=== PATIENT | male | born 1975 | race Caucasian/White ===

== ENCOUNTER 2017-09-19 20:13 | Emergency (ER) | payer OTHER ==
[~2017-09-19] VITALS: Ht 182.9 cm; Wt 94.3 kg
[2017-09-19 20:50] VITALS: BP 157/91
[2017-09-19] MEDS ORDERED: IBUPROFEN800 MG ORAL (21:00)
[2017-09-19] MEDS ORDERED: AUGMENTIN 875-1 EAC1 ORAL (21:00)
[2017-09-19 21:03] VITALS: BP 157/91
--- NOTE | 2017-09-22 06:47 | Emergency Room Report ---
History of Present Illness General Chief Complaint: Earache Source: Patient Present Illness HPI 42-year-old male presents ED for evaluation. Patient presents with sudden onset of left ear pain. Started 3 hours ago. Throbbing, 10 out of 10, nonradiating. Denies fevers or chills. Denies cough. Denies sore throat. Denies trauma to the ear. Denies any tinnitus or change in hearing. No other aggravating or relieving factors. Denies any other associated symptoms Allergies: Coded Allergies: No Known Allergies (Unverified , 09/19/17) Patient History Past Medical History: none Past Surgical History: none Pertinent Family History: none Social History: Denies: smoking, alcohol use, drug use Immunizations: UTD Reviewed Nursing Documentation: PMH: Agreed; PSxH: Agreed Nursing Documentation-PMH Past Medical History: No Stated History Review of Systems All Other Systems: negative except mentioned in HPI Physical Exam Vital Signs Date Time Temp Pulse Resp B/P (MAP) Pulse Ox O2 Delivery O2 Flow Rate FiO2 09/19/17 20:45 98.4 98 22 157/91 98 Room Air 98.4 Sp02 EP Interpretation: reviewed, normal General Appearance: no apparent distress, alert, GCS 15, non-toxic Head: normocephalic Eyes: bilateral eye normal inspection, bilateral eye PERRL ENT: hearing grossly normal, normal pharynx, no angioedema, normal voice, other - L TM poor light reflex, erythematous Neck: full range of motion, supple/symm/no masses Respiratory: normal inspection Cardiovascular #1: normal inspection Gastrointestinal: normal inspection Rectal: deferred Genitourinary: no CVA tenderness Musculoskeletal: normal inspection Neurologic: alert, oriented x3, responsive, motor strength/tone normal, sensory intact, speech normal Psychiatric: normal inspection Skin: normal inspection Lymphatic: normal inspection Medical Decision Making Diagnostic Impression: Primary Impression: Otitis media Qualified Codes: H66.90 - Otitis media, unspecified, unspecified ear ER Course Hospital Course 42-year-old M presents to ED with pain L ear. no fever. Differential diagnoses include: TM perforation, otitis externa, otitis media Clinical course Patient placed on stretcher. After initial history, physical exam reveals a female in no acute distress. L TM erythematous, poor light reflex Remainder of physical exam unremarkable. clinical findings consistent with otitis media given pain meds in ED Diagnosis - otitis media Stable and discharged to home with Rx augmentin, motrin. Followup with PMD. Return to ED if symptoms recur or worsen Last Vital Signs Date Time Temp Pulse Resp B/P (MAP) Pulse Ox O2 Delivery O2 Flow Rate FiO2 09/19/17 21:03 98.4 22 157/91 98 Room Air 209.1 09/19/17 20:45 98 Status: improved Disposition: HOME, SELF-CARE Condition: Stable Scripts Amoxicillin/Potassium Clav 875-125* (AUGMENTIN 875-125 TABLET*) 1 Each Tablet 1 TAB ORAL TWICE A DAY for 10 Days, #20 TAB Prov: KACEY HARVEY M.D. 09/19/17 Ibuprofen* (MOTRIN*) 800 Mg Tablet 800 MG ORAL Q8H, #30 TAB 0 Refills Prov: KACEY HARVEY M.D. 09/19/17 Referrals: [facility],REFERRING (PCP) Patient Instructions: Otitis Media, Adult, [id number] KACEY HARVEY M.D. Sep 22, 2017 06:47
== END 2017-09-19 21:03 | disposition home or self-care (01) ==
LOC: EMR 20:35
DX: H66.92 Otitis media, unspecified, left ear (principal)
CPT/HCPCS: 99282

== ENCOUNTER 2018-08-10 10:44 | Inpatient (IN) | payer OTHER ==
[~2018-08-10] VITALS: Ht 182.9 cm; Wt 91.6 kg
[~2018-08-10 10:44] MED LIST: AUGMENTIN 875-1 EAC1 ORAL; IBUPROFEN800 MG ORAL
[2018-08-10 11:58] VITALS: BP 152/92
--- NOTE | 2018-08-10 11:59 | NUR ---
ED Nurse Note: Pt. AAOx4. ambulaotry. came in to ER due to right groin hernia started having swelling and pain this am at 7. pt with painful ambulation and not able to stand up straight . no n/v. pt states he resides in a treatment residential facility.
[2018-08-10] MEDS ORDERED: Ketorolac 30mg Inj IV ONE (12:15)
[2018-08-10] MEDS ORDERED: Isovue-300 100ml vial INJ PRN (12:15)
--- NOTE | 2018-08-10 13:27 | Emergency Room Report ---
History of Present Illness General Chief Complaint: General Complaint Source: Patient Present Illness HPI Patient is a 43-year-old male presented after increased right inguinal pain. Patient reports having prior history of long-standing hernia which had become increasingly painful. Patient had not been having any vomiting. Patient apparently is in a facility for substance abuse. Patient denies any fever.He [place] [facility] Allergies: Coded Allergies: No Known Allergies (Unverified , 09/19/17) Patient History Past Medical History: see triage record Reviewed Nursing Documentation: PMH: Agreed; PSxH: Agreed Nursing Documentation-PMH Past Medical History: No History, Except For Review of Systems All Other Systems: negative except mentioned in HPI Physical Exam Vital Signs Date Time Temp Pulse Resp B/P (MAP) Pulse Ox O2 Delivery O2 Flow Rate FiO2 08/10/18 11:05 92 20 Room Air 08/10/18 11:05 98.2 152/92 98 Sp02 EP Interpretation: reviewed, normal General Appearance: normal inspection, well appearing, no apparent distress, alert, GCS 15, non-toxic, obese Head: atraumatic ENT: normal ENT inspection, hearing grossly normal, normal voice Neck: normal inspection, full range of motion, supple, no bony tend Respiratory: normal inspection, lungs clear, normal breath sounds, no respiratory distress, no retraction, no wheezing Cardiovascular #1: regular rate, rhythm, no edema Gastrointestinal: normal inspection, normal bowel sounds, soft, no guarding, hernia - right inguinal with large defect, other - tenderness to lower abdomen Genitourinary: no CVA tenderness Musculoskeletal: normal inspection, back normal, normal range of motion Neurologic: normal inspection, alert, oriented x3, responsive, speech normal Psychiatric: normal inspection, judgement/insight normal, mood/affect normal Skin: normal inspection, normal color, no rash Medical Decision Making Diagnostic Impression: Primary Impression: Inguinal hernia Qualified Codes: K40.30 - Unilateral inguinal hernia, with obstruction, without gangrene, not specified as recurrent Additional Impressions: Sigmoid diverticulitis Leukocytosis ER Course Patient presented for abdominal pain. Differential diagnoses included incarcerated hernia, ischemic bowel, appendicitis, perforated viscus, abdominal aortic aneurysm, inferior myocardial infarction, viral gastroenteritis among others. Because of complexity of patient's case laboratory testing and imaging studies were ordered.Patient's hernia was noted to be reducible. There is no evidence of obstruction. Patient was noted to have abnormal CT imaging with some sigmoid diverticultis with possible microperforation. Hernia was noted to have some abnormality but was reducible. Dr. Pires was contacted for surgical consult. Dr. Michael Rosales was contacted for inpatient management. Labs Test 08/10/18 12:20 White Blood Count 15.6 K/UL (4.8-10.8) Red Blood Count 5.10 M/UL (4.70-6.10) Hemoglobin 14.2 G/DL (14.2-18.0) Hematocrit 41.9 % (42.0-52.0) Mean Corpuscular Volume 82 FL (80-99) Mean Corpuscular Hemoglobin 27.8 PG (27.0-31.0) Mean Corpuscular Hemoglobin Concent 33.9 G/DL (32.0-36.0) Red Cell Distribution Width 13.0 % (11.6-14.8) Platelet Count 253 K/UL (150-450) Mean Platelet Volume 9.1 FL (6.5-10.1) Neutrophils (%) (Auto) 74.7 % (45.0-75.0) Lymphocytes (%) (Auto) 15.7 % (20.0-45.0) Monocytes (%) (Auto) 7.4 % (1.0-10.0) Eosinophils (%) (Auto) 1.6 % (0.0-3.0) Basophils (%) (Auto) 0.6 % (0.0-2.0) Urine Color Pale yellow Urine Appearance Clear Urine pH 7 (4.5-8.0) Urine Specific [place] 1.010 (1.005-1.035) Urine Protein Negative (NEGATIVE) Urine Glucose (UA) Negative (NEGATIVE) Urine Ketones Negative (NEGATIVE) Urine Blood Negative (NEGATIVE) Urine Nitrite Negative (NEGATIVE) Urine Bilirubin Negative (NEGATIVE) Urine Urobilinogen Normal MG/DL (0.0-1.0) Urine Leukocyte Esterase Negative (NEGATIVE) Sodium Level 138 MMOL/L (136-145) Potassium Level 3.9 MMOL/L (3.5-5.1) Chloride Level 102 MMOL/L (98-107) Carbon Dioxide Level 27 MMOL/L (21-32) Anion Gap 9 mmol/L (5-15) Blood Urea Nitrogen 13 mg/dL (7-18) Creatinine 1.0 MG/DL (0.55-1.30) Estimat Glomerular Filtration Rate > 60 mL/min (>60) Glucose Level 97 MG/DL (74-106) Calcium Level 8.5 MG/DL (8.5-10.1) Total Bilirubin 0.3 MG/DL (0.2-1.0) Aspartate Amino Transf (AST/SGOT) 16 U/L (15-37) Alanine Aminotransferase (ALT/SGPT) 24 U/L (12-78) Alkaline Phosphatase 120 U/L (46-116) Total Protein 7.5 G/DL (6.4-8.2) Albumin 3.7 G/DL (3.4-5.0) Globulin 3.8 g/dL Albumin/Globulin Ratio 1.0 (1.0-2.7) Lipase 138 U/L (73-393) CT/MRI/US Diagnostic Results CT/MRI/US Diagnostic Results : Imaging Test Ordered: CT abdomen and pelvis Impression Impression: Findings consistent with acute sigmoid diverticulitis. There is questionable evidence of focal microperforation, as a single gas bubble is seen which may be extraluminal, versus intraluminal within a diverticulum Large fat-containing indirect right inguinal hernia. Thickening of the contained peritoneum, infiltration of the herniated fat, and a small amount of fluid within the hernia sac raises concern for strangulation Last Vital Signs Date Time Temp Pulse Resp B/P (MAP) Pulse Ox O2 Delivery O2 Flow Rate FiO2 08/10/18 11:58 98.2 92 20 152/92 98 Room Air Status: improved Disposition: ADMITTED INPATIENT Condition: Serious Referrals: [facility],REFERR[facility] (PCP) Dinesh Guardado MD Aug 10, 2018 13:27
[2018-08-10 13:36] LABS: BASOPHILS % (AUTO) 0.6 % (0.0-2.0); EOSINOPHILS % (AUTO) 1.6 % (0.0-3.0); HEMATOCRIT 41.9 % (42.0-52.0); HEMOGLOBIN 14.2 G/DL (14.2-18.0); LYMPHOCYTES % (AUTO) 15.7 % (20.0-45.0); MEAN CORPUSCULAR VOLUME 82 FL (80-99); MONOCYTES % (AUTO) 7.4 % (1.0-10.0); NEUTROPHILS % (AUTO) 74.7 % (45.0-75.0); PLATELET COUNT 253 K/UL (150-450); WHITE BLOOD COUNT 15.6 K/UL (4.8-10.8)
[2018-08-10 13:39] LABS: APPEARANCE,URINE CLEAR; BILIRUBIN, URINE NEGATIVE (NEGATIVE); COLOR,URINE PALE YELLOW; GLUCOSE, URINE (UA) NEGATIVE (NEGATIVE); KETONES,URINE NEGATIVE (NEGATIVE); LEUKOCYTE ESTERASE ,URINE NEGATIVE (NEGATIVE); NITRITE,URINE NEGATIVE (NEGATIVE); PH,URINE 7 (4.5-8.0); PROTEIN,URINE NEGATIVE (NEGATIVE); UROBILINOGEN,URINE NORMAL MG/DL (0.0-1.0)
[2018-08-10 13:44] LABS: ANION GAP 9 mmol/L (5-15); BLOOD UREA NITROGEN 13 mg/dL (7-18); CALCIUM 8.5 MG/DL (8.5-10.1); CARBON DIOXIDE 27 MMOL/L (21-32); CHLORIDE 102 MMOL/L (98-107); POTASSIUM 3.9 MMOL/L (3.5-5.1); SODIUM 138 MMOL/L (136-145)
[2018-08-10 13:47] LABS: ALANINE AMINOTRANSFERASE 24 U/L (12-78); ALBUMIN 3.7 G/DL (3.4-5.0); ALKALINE PHOSPHATASE 120 U/L (46-116); ASPARTATE AMINO TRANSFERASE 16 U/L (15-37); BILIRUBIN,TOTAL 0.3 MG/DL (0.2-1.0)
[2018-08-10 14:35] VITALS: BP 148/90
--- NOTE | 2018-08-10 15:01 | Diagnostic Imaging Report ---
Clinical Indication: Right inguinal region pain, history of inguinal hernia Technique: No oral contrast utilized, per emergency room physician request IV administration nonionic contrast. Venous phase spiral acquisition obtained through the abdomen and pelvis. Multiplanar reconstructions were generated. Total dose length product 1113.48 mGycm. CTDIvol(s) 17.25 mGy. Dose reduction achieved using automated exposure control Comparison: none Findings: Lack of enteric contrast limits assessment of the GI tract. There is sigmoid diverticulosis. There is infiltration of the perisigmoid fat as well as wall thickening of the mid sigmoid. A gas bubble is seen within the area of fatty infiltration. Uncertain as to whether this is extraluminal or contained within a diverticulum. Some free fluid is seen in the pelvis. No discrete loculated fluid collections are evident. There is a large right indirect inguinal hernia. This contains only mesenteric fat. However, there is infiltration of the fat within the hernia, thickening of the peritoneum within the hernia sac, and a small amount of free fluid in the inferior aspect of the hernia sac. The appendix is normal. No small bowel distention. The distal esophagus, stomach, duodenum are unremarkable. There is a tiny fat-containing umbilical hernia. The liver is equivocally mildly hypoattenuating. No focal abnormality. The gallbladder, bile ducts, pancreas, spleen, adrenals, right kidney are unremarkable. The left kidney demonstrates one or more subcentimeter low-attenuation lesions which are too small to characterize. No mesenteric or retroperitoneal mass or adenopathy. No pelvic mass or adenopathy. The included lung bases are clear. The bones are unremarkable. Impression: Findings consistent with acute sigmoid diverticulitis. There is questionable evidence of focal microperforation, as a single gas bubble is seen which may be extraluminal, versus intraluminal within a diverticulum Large fat-containing indirect right inguinal hernia. Thickening of the contained peritoneum, infiltration of the herniated fat, and a small amount of fluid within the hernia sac raises concern for strangulation Equivocally slightly hypoattenuating liver, could indicate early fatty change Subcentimeter low-attenuation left renal lesions, too small to characterize, most likely benign simple cysts Incidental finding tiny fat-containing abdominal hernia The CT scanner at [facility] is accredited by the [employer] and the scans are performed using protocols designed to limit radiation exposure to as low as reasonably achievable to attain images of sufficient resolution adequate for diagnostic evaluation.
[2018-08-10] MEDS ORDERED: Piperacillin/Tazobactam 3.375 GM in NS 110 ML IVPB ONE (15:15)
[2018-08-10 17:40] VITALS: BP 150/89
--- NOTE | 2018-08-10 18:17 | NUR ---
ED Nurse Note: INFORMED PT THAT HE IS NPO PER DR. HARVEY. PT STATED HES HASN'T EATEN ANYTHING SICNE THIS MORNING. PT UNDERSTOOD AND VERBALIZED THE INSTRUCTIONS GIVEN
--- NOTE | 2018-08-10 19:54 | NUR ---
ED Nurse Note: Received report. Pt in bed awake with julio césar at [facility]. Awaiting possible admission. MD Pires at [facility] to see pt. Will continue to monitor.
[2018-08-10 20:05] VITALS: BP 144/87
--- NOTE | 2018-08-10 21:03 | Consultation ---
History of Present Illness General Reason for Hospitalization: General Complaint Present Illness HPI 43 year old male with known right inguinal hernia presented with acute onset of right groin and abdominal pain. no n/v/f/c/. +flatus. pain cramping without radiation. In ED noted to have leukocytosis. CT with incarcerated right inguinal hernia and possible diverticulitis. surgery called to evaluate. patient seen, chart reviewed, patient examined. Allergies: Coded Allergies: No Known Allergies (Unverified , 09/19/17) Medication History Scheduled Ibuprofen* (Motrin*), 800 MG ORAL Q8H Discontinued Medications Amoxicillin/Potassium Clav 875-125* (Augmentin 875-125 Tablet*), 1 TAB ORAL TWICE A DAY Discontinued Reason: Therapy completed Patient History History Provided By: Patient, Family Member, Significant Other, Medical Record , PMD Healthcare decision maker Resuscitation status Advanced Directive on File Past Medical/Surgical History Past Medical/Surgical History: (1) Otitis media (2) Inguinal hernia Review of Systems Review of Symptoms General ROS: no weight loss or fever Psychological ROS: no depression or mood changes, no memory loss Ophthalmic ROS: no visual changes or eye irritation ENT ROS: no nasal congestion, hearing loss, dizziness Allergy and Immunology ROS: no allergic symptoms or urticaria Hematological and Lymphatic ROS: no swollen glands, unusual bleeding or bruising Endocrine ROS: no polyuria, polydipsia, weight changes, temperature intolerance Respiratory ROS: no cough, shortness of breath, or wheezing Cardiovascular ROS: no chest pain or dyspnea on exertion Gastrointestinal ROS: denies abdominal pain, bright red blood in stool. Musculoskeletal ROS: no myalgias or arthralgias Neurological ROS: no TIA or stroke symptoms Dermatological ROS: no new or changing skin lesions, rashes or pruritis Physical Exam Physical Exam General appearance: alert, cooperative, no distress, appears stated age Head: Normocephalic, without obvious abnormality, atraumatic Eyes: conjunctivae/corneas clear. PERRL, EOM's intact. Fundi benign Throat: Lips, mucosa, and tongue normal. Teeth and gums normal Neck: supple, symmetrical, trachea midline, no adenopathy, thyroid: not enlarged, symmetric, no tenderness/mass/nodules, no carotid bruit and no JVD Lungs: clear to auscultation bilaterally Heart: regular rate and rhythm, S1, S2 normal, no murmur, click, rub or gallop Abdomen: soft, non-tender. Bowel sounds normal. No masses, no organomegaly, mild discomfort on exam. RIH with bowel contents. Extremities: extremities normal, atraumatic, no cyanosis or edema Pulses: 2+ and symmetric Skin: Skin color, texture, turgor normal. No rashes or lesions Neurologic: Grossly normal Last 24 Hour Vital Signs Date Time Temp Pulse Resp B/P (MAP) Pulse Ox O2 Delivery O2 Flow Rate FiO2 08/10/18 13:06 98.2 08/10/18 11:58 98.2 92 20 152/92 98 Room Air 08/10/18 11:05 98.2 92 20 152/92 98 Room Air 08/10/18 11:05 92 20 Room Air Laboratory Tests Test 08/10/18 12:20 White Blood Count 15.6 K/UL (4.8-10.8) H Red Blood Count 5.10 M/UL (4.70-6.10) Hemoglobin 14.2 G/DL (14.2-18.0) Hematocrit 41.9 % (42.0-52.0) L Mean Corpuscular Volume 82 FL (80-99) Mean Corpuscular Hemoglobin 27.8 PG (27.0-31.0) Mean Corpuscular Hemoglobin Concent 33.9 G/DL (32.0-36.0) Red Cell Distribution Width 13.0 % (11.6-14.8) Platelet Count 253 K/UL (150-450) Mean Platelet Volume 9.1 FL (6.5-10.1) Neutrophils (%) (Auto) 74.7 % (45.0-75.0) Lymphocytes (%) (Auto) 15.7 % (20.0-45.0) L Monocytes (%) (Auto) 7.4 % (1.0-10.0) Eosinophils (%) (Auto) 1.6 % (0.0-3.0) Basophils (%) (Auto) 0.6 % (0.0-2.0) Urine Color Pale yellow Urine Appearance Clear Urine pH 7 (4.5-8.0) Urine Specific [place] 1.010 (1.005-1.035) Urine Protein Negative (NEGATIVE) Urine Glucose (UA) Negative (NEGATIVE) Urine Ketones Negative (NEGATIVE) Urine Blood Negative (NEGATIVE) Urine Nitrite Negative (NEGATIVE) Urine Bilirubin Negative (NEGATIVE) Urine Urobilinogen Normal MG/DL (0.0-1.0) Urine Leukocyte Esterase Negative (NEGATIVE) Sodium Level 138 MMOL/L (136-145) Potassium Level 3.9 MMOL/L (3.5-5.1) Chloride Level 102 MMOL/L (98-107) Carbon Dioxide Level 27 MMOL/L (21-32) Anion Gap 9 mmol/L (5-15) Blood Urea Nitrogen 13 mg/dL (7-18) Creatinine 1.0 MG/DL (0.55-1.30) Estimat Glomerular Filtration Rate > 60 mL/min (>60) Glucose Level 97 MG/DL (74-106) Calcium Level 8.5 MG/DL (8.5-10.1) Total Bilirubin 0.3 MG/DL (0.2-1.0) Aspartate Amino Transf (AST/SGOT) 16 U/L (15-37) Alanine Aminotransferase (ALT/SGPT) 24 U/L (12-78) Alkaline Phosphatase 120 U/L (46-116) H Total Protein 7.5 G/DL (6.4-8.2) Albumin 3.7 G/DL (3.4-5.0) Globulin 3.8 g/dL Albumin/Globulin Ratio 1.0 (1.0-2.7) Lipase 138 U/L (73-393) Height (Feet): 6 Weight (Pounds): 208 Medications Current Medications Medications (Trade) Dose Ordered Sig/Lefty Route PRN Reason Start Time Stop Time Status Last Admin Dose Admin Iopamidol (Isovue-300 100ml) 100 ml NOW PRN INJ Radiology Procedure 08/10/18 12:15 Assessment/Plan Problem List: (1) Inguinal hernia Assessment & Plan: incarcerated right inguinal hernia. was able to reduce hernia in ED without complication given duration / leukocytosis will need admission for serial exams. if worsening will need exploration as possible compromised bowel? also seems to have diverticulitis based on CT scan and exam which complicates exam. Admit to medicine npo iv fluids iv abx am labs will follow with serial exams thank you ICD Codes: K40.90 - Unilateral inguinal hernia, without obstruction or gangrene , not specified as recurrent SNOMED: [id number] Qualifiers: Qualified Codes: K40.30 - Unilateral inguinal hernia, with obstruction, without gangrene, not specified as recurrent Ryan Pires Aug 10, 2018 21:03
--- NOTE | 2018-08-10 22:06 | NUR ---
ED Nurse Note: Tried to swab for VRE/CRE and MRSA nares but pt refused. Pt states he does not share anything with anyone at SNF called [facility] and does not want to get swabbed. Will endorse to floor RN during transfer.
[2018-08-10 22:09] VITALS: BP 142/84
--- NOTE | 2018-08-10 22:15 | NUR ---
TRANSFER TO FLOOR: Patient transferred to as ordered, per MD Rosales. Report given to Ramonita FUENTES. Belongings and medications given to Ramonita FUENTES. Pt stable.
[2018-08-10 22:20] VITALS: BP 130/74
--- NOTE | 2018-08-10 22:39 | NUR ---
NURSE NOTES: NURSE NOTES:Patient received from Shin Lobato Patient 43 -yrs- old from ED due to right groin hernia .patient states having swelling and pain from 7 am .patient states painful in ambulation . pain medications was given ER . pain was controlled and with good relief . patient vss, afebrile . patient denies any pain at this time . no s/ s of distress . patient RAC g#20 H/L patent and intact .patient skin intact . patient personal belongings checked and signed . patient family notified patient location and [facility] substance abuse facility . MD notified patient location 303 bed 2 . patient keep NPO as MD orders . call light within reach . bed in low position at all times will cotinue to monitor .
--- NOTE | 2018-08-10 23:15 | History and Physical Report ---
DATE OF ADMISSION: 08/10/2018 REASON FOR ADMISSION: Incarcerated right inguinal hernia. HISTORY OF PRESENT ILLNESS: This 43-year-old male has a known history of a right inguinal hernia and presented to the emergency room with right-sided groin pain that was relatively acute in onset. He noted some abdominal discomfort. He was able to pass gas. He was seen by the surgeon in the emergency room following CAT scan imaging that revealed incarceration and sigmoid diverticulitis. Reduction manually was successfully performed. PAST MEDICAL HISTORY: None. MEDICATIONS: None. ALLERGIES: None. SOCIAL HISTORY: Negative for substance abuse or alcohol abuse. He is an active smoker of 1/2 to 1 ppd. REVIEW OF SYSTEMS: He is being treated for an ear infection with amoxicillin, otherwise negative. PHYSICAL EXAMINATION: VITAL SIGNS: Blood pressure 152/92, pulse 92, respiratory rate 20, afebrile. HEENT: Conjunctivae pink. Sclerae are anicteric. Oropharynx clear. NECK: No adenopathy. LUNGS: Clear. CARDIAC: Regular rhythm and rate. Normal S1, S2. No murmur. ABDOMEN: Tender. Slightly distended. Hernia site is without any protuberance at this time, but still with slight tenderness. EXTREMITIES: Without edema. LABORATORY DATA: Chemistry panel within normal limits. White count 15.6, hemoglobin 14.2. Urinalysis, no active sediment. CAT scan of the abdomen and pelvis is notable for probable renal cyst, fat-containing right inguinal hernia, sigmoid diverticulitis with possible focal microperforation. IMPRESSION: 1. Incarcerated right inguinal hernia, now reduced. 2. Sigmoid diverticulitis with possible microperforation. 3. Leukocytosis. PLAN: 1. NPO. 2. Surgical followup. 3. IV antimicrobials. 4. May need to repeat imaging of the bowel. Michael Rosales M.D. DR: Sincere JOB#: [id number] CC: ANITA
[2018-08-11] MEDS: Piperacillin/Tazobactam 3.375 GM in D5W 110 ML IVPB SCH ×4 (00:01→21:33)
[2018-08-11 04:00] VITALS: BP 142/77
[2018-08-11] MEDS: Morphine Sulfate 2mg/ml Inj IVP PRN ×2 (06:42→18:23)
[2018-08-11 07:09] LABS: BASOPHILS % (AUTO) 0.4 % (0.0-2.0); EOSINOPHILS % (AUTO) 1.1 % (0.0-3.0); HEMATOCRIT 41.2 % (42.0-52.0); HEMOGLOBIN 13.9 G/DL (14.2-18.0); LYMPHOCYTES % (AUTO) 17.3 % (20.0-45.0); MEAN CORPUSCULAR VOLUME 82 FL (80-99); MONOCYTES % (AUTO) 10.9 % (1.0-10.0); NEUTROPHILS % (AUTO) 70.3 % (45.0-75.0); PLATELET COUNT 240 K/UL (150-450); RED BLOOD COUNT 5.03 M/UL (4.70-6.10); WHITE BLOOD COUNT 13.9 K/UL (4.8-10.8)
--- NOTE | 2018-08-11 07:30 | NUR ---
HAND-OFF: Report given to Mariann LobatoPatient in stable conditions
[2018-08-11 07:33] LABS: ALANINE AMINOTRANSFERASE 21 U/L (12-78); ALBUMIN 3.2 G/DL (3.4-5.0); ALBUMIN/GLOBULIN RATIO 0.8 (1.0-2.7); ALKALINE PHOSPHATASE 104 U/L (46-116); ANION GAP 7 mmol/L (5-15); ASPARTATE AMINO TRANSFERASE 16 U/L (15-37); BILIRUBIN,TOTAL 0.8 MG/DL (0.2-1.0); BLOOD UREA NITROGEN 14 mg/dL (7-18); CALCIUM 8.2 MG/DL (8.5-10.1); CARBON DIOXIDE 29 MMOL/L (21-32); CHLORIDE 103 MMOL/L (98-107); CREATININE 1.3 MG/DL (0.55-1.30); POTASSIUM 3.8 MMOL/L (3.5-5.1); SODIUM 139 MMOL/L (136-145)
[2018-08-11 08:00] VITALS: BP 127/72
--- NOTE | 2018-08-11 08:00 | NUR ---
NURSE NOTES: WALKING ROUNDS DONE WITH OUTGOING RN. PATIENT AWAKE IN BED. DENIES PAIN AT THIS TIME. NPO UNTIL FURTHER ORDERS FROM MD.QUESTIONS ANSWERED. NEEDS MET AT THIS TIME.CALL LIGHT WITHIN REACH.
[2018-08-11 11:35] VITALS: BP 126/76
[2018-08-11] MEDS ORDERED: Isovue-300 100ml vial INJ PRN (12:45)
[2018-08-11] MEDS ORDERED: Gastrograffin 30ml ORAL PRN (12:45)
--- NOTE | 2018-08-11 14:04 | Surgery Progress Note ---
Surgery Progress Note Subjective Additional Comments still with abd pain. no n/v/f/c. leukocytosis improving. hernia recurrent but still reducible. Objective Last 24 Hour Vital Signs Date Time Temp Pulse Resp B/P (MAP) Pulse Ox O2 Delivery O2 Flow Rate FiO2 08/11/18 11:35 97.7 75 20 126/76 (93) 100 08/11/18 08:35 Room Air 08/11/18 08:00 97.3 79 18 127/72 (90) 97 08/11/18 07:12 98.0 08/11/18 04:00 97.2 80 20 142/77 (98) 98 08/10/18 22:39 Room Air 08/10/18 22:20 98.0 79 20 130/74 (92) 98 08/10/18 22:09 98.0 92 21 142/84 98 Room Air 08/10/18 21:54 98.2 96 14 142/84 98 Room Air 08/10/18 20:05 98.1 92 20 144/87 98 Room Air 08/10/18 17:40 98.2 92 19 150/89 98 Room Air 08/10/18 14:35 98.3 92 21 148/90 98 Room Air I&O Intake and Output 08/10/18 08/11/18 18:59 06:59 Intake Total 360.0 ml Balance 360.0 ml Intake IV Total 360.0 ml # Voids 1 2 Cardiovascular: RSR Respiratory: clear Abdomen: soft, distended, tenderness, present bowel sounds Extremities: no tenderness, no cyanosis Laboratory Tests Test 08/11/18 04:55 White Blood Count 13.9 K/UL (4.8-10.8) H Red Blood Count 5.03 M/UL (4.70-6.10) Hemoglobin 13.9 G/DL (14.2-18.0) L Hematocrit 41.2 % (42.0-52.0) L Mean Corpuscular Volume 82 FL (80-99) Mean Corpuscular Hemoglobin 27.7 PG (27.0-31.0) Mean Corpuscular Hemoglobin Concent 33.8 G/DL (32.0-36.0) Red Cell Distribution Width 13.0 % (11.6-14.8) Platelet Count 240 K/UL (150-450) Mean Platelet Volume 9.0 FL (6.5-10.1) Neutrophils (%) (Auto) 70.3 % (45.0-75.0) Lymphocytes (%) (Auto) 17.3 % (20.0-45.0) L Monocytes (%) (Auto) 10.9 % (1.0-10.0) H Eosinophils (%) (Auto) 1.1 % (0.0-3.0) Basophils (%) (Auto) 0.4 % (0.0-2.0) Erythrocyte Sedimentation Rate 28 MM/HR (0-15) H Prothrombin Time 10.8 SEC (9.30-11.50) Prothromb Time International Ratio 1.0 (0.9-1.1) Activated Partial Thromboplast Time 33 SEC (23-33) Sodium Level 139 MMOL/L (136-145) Potassium Level 3.8 MMOL/L (3.5-5.1) Chloride Level 103 MMOL/L (98-107) Carbon Dioxide Level 29 MMOL/L (21-32) Anion Gap 7 mmol/L (5-15) Blood Urea Nitrogen 14 mg/dL (7-18) Creatinine 1.3 MG/DL (0.55-1.30) Estimat Glomerular Filtration Rate > 60 mL/min (>60) Glucose Level 101 MG/DL (74-106) Lactic Acid Level 0.70 mmol/L (0.4-2.0) Calcium Level 8.2 MG/DL (8.5-10.1) L Total Bilirubin 0.8 MG/DL (0.2-1.0) Aspartate Amino Transf (AST/SGOT) 16 U/L (15-37) Alanine Aminotransferase (ALT/SGPT) 21 U/L (12-78) Alkaline Phosphatase 104 U/L (46-116) C-Reactive Protein, Quantitative 21.6 mg/dL (0.00-0.90) H Total Protein 7.2 G/DL (6.4-8.2) Albumin 3.2 G/DL (3.4-5.0) L Globulin 4.0 g/dL Albumin/Globulin Ratio 0.8 (1.0-2.7) L Plan Problems: (1) Inguinal hernia Assessment & Plan: incarcerated right inguinal hernia. was able to reduce hernia in ED without complication given duration / leukocytosis will need admission for serial exams. if worsening will need exploration as possible compromised bowel? also seems to have diverticulitis based on CT scan and exam which complicates exam. hernia may be a red barakat as likely etiology of leukocytosis and abdominal pain is diverticulitis hernia notable and recurrent but easily reducible without incarceration or strangulation. repeat CT with IV and oral contrast. npo iv fluids iv abx am labs will follow with serial exams thank you Ryan Pires Aug 11, 2018 14:04
[2018-08-11 16:00] VITALS: BP 120/77
--- NOTE | 2018-08-11 16:55 | Diagnostic Imaging Report ---
Clinical Indication: Abdominal pain Technique: Patient given oral contrast. IV administration nonionic contrast. Venous phase spiral acquisition obtained through the abdomen and pelvis. Multiplanar reconstructions were generated. Total dose length product 784.17 and 702 mGycm. CTDIvol(s) 14.79 and 17.93 mGy. Dose reduction achieved using automated exposure control Comparison: 08/10/2018 Findings: Again demonstrated is sigmoid wall thickening and infiltration of the perisigmoid fat, as well as colonic diverticulosis. Previously demonstrated possible extraluminal gas bubble is not evident on this exam. No focal fluid collections are demonstrated. The extent of the pericolonic infiltration appears similar to the previous study. Again demonstrated is an indirect fat-containing right inguinal hernia, with a small amount of fluid in the inferior hernia sac, thickening of the peritoneal surface, and slight infiltration of the fat within the hernia sac, appearing similar to the previous study. Colonic diverticulosis is again demonstrated elsewhere. The appendix is normal. Ingested contrast has traversed the entirety of the small bowel and is seen as far distally as the proximal descending colon. No small bowel distention or small bowel wall thickening is evident. The distal esophagus, stomach, duodenum are unremarkable. Previously demonstrated free pelvic fluid is decreased in extent. No intraperitoneal gas is evident The gallbladder contains slightly high attenuation material, may represent excreted contrast from the previous study. The liver is unremarkable. The bile ducts, pancreas, spleen, adrenals, right kidney are unremarkable. One or more subcentimeter low-attenuation lesions are again noted in the left kidney, too small to characterize. No retroperitoneal or mesenteric mass or adenopathy. No pelvic mass or adenopathy. The included lung bases demonstrate some posterior atelectatic changes which are new since the prior study. The bones are unremarkable except for some mild degenerative changes of the bilateral hips. Impression: Evidence of sigmoid diverticulitis. Essentially unchanged in appearance and extent from the previous exam. Note, however, that a question extraluminal gas bubble seen previously is not currently evident, and there is decreased free pelvic fluid. Unchanged appearance of previously reported fat-containing right inguinal hernia. Although the hernia hernia orifice is fairly broad, thickening of the peritoneum, slight infiltration of the fat contents, and a small amount of fluid within the sac so raises possibility of strangulation. Correlate with clinical findings Increasing right basilar dependent atelectatic changes Other stable incidental findings as described The CT scanner at [facility] is accredited by the [employer] and the scans are performed using protocols designed to limit radiation exposure to as low as reasonably achievable to attain images of sufficient resolution adequate for diagnostic evaluation.
--- NOTE | 2018-08-11 18:45 | Consultation ---
DATE OF CONSULTATION: 08/11/2018 INFECTIOUS DISEASES CONSULTATION CONSULTING PHYSICIAN: Guerita Garcia M.D. REFERRING PHYSICIAN: Michael Rosales M.D. REASON FOR CONSULTATION: Diverticulitis. HISTORY OF PRESENT ILLNESS: This is a 43-year-old gentleman with history of substance abuse with methamphetamine, currently in rehabilitation, who comes in with abdominal pain. He underwent a CT scan of the abdomen, which showed incarceration of hernia as well as diverticulitis. Hernia was reduced manually and an Infectious Diseases consultation has been obtained for antibiotics and for diverticulitis. PAST MEDICAL HISTORY: Noncontributory. MEDICATIONS: As an inpatient, he is on Zosyn, Flagyl, and morphine. ALLERGIES: No known drug allergies. SOCIAL HISTORY: No history of smoking or alcohol use. He has history of crystal meth use, currently in rehabilitation. FAMILY HISTORY: Noncontributory. REVIEW OF SYSTEMS: RESPIRATORY: No fever, chills, cough, shortness of breath, or chest pain. CARDIAC: No chest pain. No palpitations. No dizziness. No syncope. GASTROINTESTINAL: No nausea. No vomiting. He does have abdominal pain. No diarrhea. PHYSICAL EXAMINATION: VITAL SIGNS: Temperature of 97.3, T-max of 98.3, pulse of 79, respiratory rate of 18, blood pressure 127/72, and O2 saturation of 97%. HEENT: Pupils are equally reactive to light and accommodation. Mouth appears clean without thrush. NECK: Supple. No adenopathy. No JVD. CARDIOVASCULAR: Regular rate and rhythm. No murmurs. LUNGS: Clear to auscultation bilaterally. No crackles. No wheezes. ABDOMEN: Soft. There is tenderness in the left lower quadrant as well as suprapubic area. EXTREMITIES: No cyanosis, no clubbing, and no edema. LABORATORY AND DIAGNOSTIC DATA: White count of 15.6 on 08/10/2018, white count of 13.9 on 08/11/2018, hemoglobin 13.9, hematocrit 41.2, MCV 82, and platelet count of 240,000 with neutrophils of 70%. Sodium 139, potassium 3.8, chloride 103, bicarb 29, BUN 14, creatinine 1.3, glucose 101, calcium 8.2, and total bilirubin 0.8. AST 16, ALT 21, and alkaline phosphatase 104. C-reactive protein 21, total protein 7.2, albumin 3.2, and lipase of 138. UA showing LE negative and nitrite negative. CT abdomen and pelvis showing acute sigmoid diverticulitis with question of focal microperforation, large fat containing right inguinal hernia noted, thickening of the and infiltration of the . ASSESSMENT: This is a 43-year-old gentleman with no significant past medical history except for crystal meth abuse, currently in rehabilitation who comes in with, 1. Abdominal pain and is found to have acute sigmoid diverticulitis with possibly microperforation. 2. He also has hernia, which has been reduced. 3. Leukocytosis is improving. PLAN: 1. Continue Zosyn. 2. Discontinue Flagyl. 3. We will follow up the patient clinically. I would like to thank, Dr. Rosales, for this consultation. Guerita Garcia M.D. DR: JEAN-PAUL JOB#: [id number] CC: Michael Rosales M.D.
--- NOTE | 2018-08-11 19:30 | NUR ---
NURSE NOTES: PATIENT REMAINS NPO UNTIL FURTHER NOTICE FROM MEDICAL TEAM; PATIENT KEPT INFORMED. ICE CHIPS GIVEN AND TOLERATING. CALL LIGHT WITHIN REACH.
--- NOTE | 2018-08-11 19:32 | NUR ---
HAND-OFF: Report given to SNEHA JONES RN.
--- NOTE | 2018-08-11 19:33 | NUR ---
NURSE NOTES: Received report & pt from ALFREDO Waite. Pt lying in bed, a&ox4, in room air. No s/s of acute distress & no c/o pain at this time. Skin intact. IV site intact with IVF running as ordered. Pt aware of NPO status. Bed in lowest position, call light within reach. Will continue to monitor.
[2018-08-11 20:00] VITALS: BP 120/71
--- NOTE | 2018-08-11 21:00 | Progress Note ---
DATE: 08/11/2018 SUBJECTIVE: The patient still has abdominal pain in the right lower quadrant. He does have an appetite, however. He still has recurrence of his right inguinal hernia that it is reducible. A repeat CAT scan performed today reveals persisting hernia, persisting diverticulitis but no evidence of free air. OBJECTIVE: VITAL SIGNS: Afebrile, blood pressure 126/76, pulse 75, and respirations 20. NECK: Supple. LUNGS: Clear. 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 No guarding. EXTREMITIES: No edema. LABORATORY DATA: White count down to 13.9. Chemistry panel within normal limits with the exception of BUN 14 and creatinine 1.3. Lactic acid is normalized. IMPRESSION: 1. Acute diverticulitis. 2. Incarcerated right inguinal hernia, status post reduction. 3. Improving leukocytosis. PLAN: 1. Continue IV fluids and IV antibiotics. 2. NPO status. 3. Surgery followup appreciated. 4. Nicotine patch for smoking for withdrawal symptoms. Michael Rosales M.D. DR: DONTA JOB#: [id number] CC:
[2018-08-11 23:15] VITALS: BP 127/71
[2018-08-12] MEDS: Morphine Sulfate 2mg/ml Inj IVP PRN ×2 (02:06→06:07)
[2018-08-12 04:00] VITALS: BP 122/84
[2018-08-12] MEDS: Piperacillin/Tazobactam 3.375 GM in D5W 110 ML IVPB SCH ×3 (05:51→22:44)
[2018-08-12 07:04] LABS: EOSINOPHILS % (AUTO) 2.1 % (0.0-3.0); HEMATOCRIT 43.6 % (42.0-52.0); HEMOGLOBIN 14.5 G/DL (14.2-18.0); LYMPHOCYTES % (AUTO) 26.1 % (20.0-45.0); MEAN CORPUSCULAR VOLUME 83 FL (80-99); NEUTROPHILS % (AUTO) 63.9 % (45.0-75.0); PLATELET COUNT 235 K/UL (150-450); RED BLOOD COUNT 5.28 M/UL (4.70-6.10); RED CELL DISTRIBUTION WIDTH 13.1 % (11.6-14.8); WHITE BLOOD COUNT 9.4 K/UL (4.8-10.8)
--- NOTE | 2018-08-12 07:35 | NUR ---
HAND-OFF: Report given to ALFREDO Aleman.
[2018-08-12 07:36] LABS: ALANINE AMINOTRANSFERASE 20 U/L (12-78); ALBUMIN 3.2 G/DL (3.4-5.0); ALBUMIN/GLOBULIN RATIO 0.8 (1.0-2.7); ALKALINE PHOSPHATASE 101 U/L (46-116); ANION GAP 9 mmol/L (5-15); ASPARTATE AMINO TRANSFERASE 17 U/L (15-37); BILIRUBIN,TOTAL 0.6 MG/DL (0.2-1.0); BLOOD UREA NITROGEN 8 mg/dL (7-18); CALCIUM 8.9 MG/DL (8.5-10.1); CARBON DIOXIDE 27 MMOL/L (21-32); CHLORIDE 104 MMOL/L (98-107); CREATININE 1.1 MG/DL (0.55-1.30); POTASSIUM 4.1 MMOL/L (3.5-5.1); SODIUM 139 MMOL/L (136-145)
[2018-08-12 08:00] VITALS: BP 135/84
--- NOTE | 2018-08-12 08:00 | NUR ---
NURSE NOTES: PATIENT SEEN AND ASSESSED.PATIENT AWAKE IN BATHROOM. DENIES ABDOMINAL PAIN. NO EVIDENCE OF NAUSEA AND VOMITING. DISCUSSED PLAN OF CARE FOR THE DAY. VERBALIZED UNDERSTANDING.
--- NOTE | 2018-08-12 10:52 | Infectious Diseases Prog Note ---
Assessment/Plan Assessment/Plan A; Sigmoid diverticulitis Right inguinal hernia, reduced Leukocytosis resolved Nicotine dependence P: Continue Zosyn Switch to PO antibiotic whenever patient can eat Subjective ROS Limited/Unobtainable: No Constitutional: Reports: no symptoms Respiratory: Reports: no symptoms Cardiovascular: Reports: no symptoms Gastrointestinal/Abdominal: Reports: no symptoms Genitourinary: Reports: no symptoms Neurologic: Reports: no symptoms Allergies: Coded Allergies: No Known Allergies (Unverified , 09/19/17) Objective Vital Signs Last 24 Hour Vital Signs Date Time Temp Pulse Resp B/P (MAP) Pulse Ox O2 Delivery O2 Flow Rate FiO2 08/12/18 09:00 Room Air Room Air 08/12/18 08:00 97.3 78 20 135/84 (101) 99 08/12/18 04:00 97.2 74 18 122/84 (97) 100 08/11/18 23:15 98.0 74 20 127/71 (89) 100 08/11/18 21:00 Room Air 08/11/18 20:00 97.5 77 20 120/71 (87) 96 08/11/18 18:53 97.8 08/11/18 16:00 97.8 80 20 120/77 (91) 99 08/11/18 11:35 97.7 75 20 126/76 (93) 100 Height (Feet): 6 Height (Inches): 0.00 Weight (Pounds): 202 General Appearance: no acute distress HEENT: mucous membranes moist Respiratory/Chest: lungs clear Cardiovascular: normal rate Abdomen: soft, non tender Genitourinary: other - R inguinal hernia Neurologic/Psychiatric: alert, oriented x 3, responsive Laboratory Tests Test 08/12/18 05:32 White Blood Count 9.4 K/UL (4.8-10.8) Red Blood Count 5.28 M/UL (4.70-6.10) Hemoglobin 14.5 G/DL (14.2-18.0) Hematocrit 43.6 % (42.0-52.0) Mean Corpuscular Volume 83 FL (80-99) Mean Corpuscular Hemoglobin 27.5 PG (27.0-31.0) Mean Corpuscular Hemoglobin Concent 33.3 G/DL (32.0-36.0) Red Cell Distribution Width 13.1 % (11.6-14.8) Platelet Count 235 K/UL (150-450) Mean Platelet Volume 8.1 FL (6.5-10.1) Neutrophils (%) (Auto) 63.9 % (45.0-75.0) Lymphocytes (%) (Auto) 26.1 % (20.0-45.0) Monocytes (%) (Auto) 7.0 % (1.0-10.0) Eosinophils (%) (Auto) 2.1 % (0.0-3.0) Basophils (%) (Auto) 1.0 % (0.0-2.0) Sodium Level 139 MMOL/L (136-145) Potassium Level 4.1 MMOL/L (3.5-5.1) Chloride Level 104 MMOL/L (98-107) Carbon Dioxide Level 27 MMOL/L (21-32) Anion Gap 9 mmol/L (5-15) Blood Urea Nitrogen 8 mg/dL (7-18) Creatinine 1.1 MG/DL (0.55-1.30) Estimat Glomerular Filtration Rate > 60 mL/min (>60) Glucose Level 98 MG/DL (74-106) Calcium Level 8.9 MG/DL (8.5-10.1) Total Bilirubin 0.6 MG/DL (0.2-1.0) Aspartate Amino Transf (AST/SGOT) 17 U/L (15-37) Alanine Aminotransferase (ALT/SGPT) 20 U/L (12-78) Alkaline Phosphatase 101 U/L (46-116) Total Protein 7.3 G/DL (6.4-8.2) Albumin 3.2 G/DL (3.4-5.0) L Globulin 4.1 g/dL Albumin/Globulin Ratio 0.8 (1.0-2.7) L Current Medications Medications (Trade) Dose Ordered Sig/Lefty Route PRN Reason Start Time Stop Time Status Last Admin Dose Admin Dextrose/ Electrolytes 1,000 ml @ 125 mls/hr Q8H IV 08/10/18 22:45 09/09/18 22:44 08/12/18 05:50 Diatrizoate Meglum/ Diatrizoate Sod (Gastrografin) 30 ml NOW PRN ORAL Radiology Procedure 08/11/18 12:45 08/12/18 12:44 Iopamidol (Isovue-300 100ml) 100 ml NOW PRN INJ Radiology Procedure 08/11/18 12:45 08/12/18 12:44 Morphine Sulfate (Morphine Sulfate) 2 mg Q4H PRN IVP For Pain 08/10/18 22:45 08/17/18 22:44 08/12/18 06:07 Nicotine (Nicoderm) 1 patch Q24H TDERMAL 08/11/18 18:00 09/10/18 17:59 08/11/18 17:35 Piperacillin Sod/ Tazobactam Sod 3.375 gm/Dextrose 110 ml @ 27.5 mls/hr EVERY 8 HOURS IVPB 08/10/18 22:45 08/15/18 22:44 08/12/18 05:51 Fabio Horn MD Aug 12, 2018 10:52
--- NOTE | 2018-08-12 11:39 | NUR ---
NURSE NOTES: PATIENT TOLERATING CLEAR LIQUIDS. UP AMBULATING AROUND UNIT. DENIES N/V AT THIS TIME. WILL CONTINUE TO MONITOR.
[2018-08-12 12:00] VITALS: BP 120/84
--- NOTE | 2018-08-12 13:04 | Surgery Progress Note ---
Surgery Progress Note Subjective Additional Comments leukocytosis resolved. pain improved. no n/v/f/c. Objective Last 24 Hour Vital Signs Date Time Temp Pulse Resp B/P (MAP) Pulse Ox O2 Delivery O2 Flow Rate FiO2 08/12/18 12:00 98.1 78 20 120/84 (96) 99 08/12/18 09:00 Room Air Room Air 08/12/18 08:00 97.3 78 20 135/84 (101) 99 08/12/18 04:00 97.2 74 18 122/84 (97) 100 08/11/18 23:15 98.0 74 20 127/71 (89) 100 08/11/18 21:00 Room Air 08/11/18 20:00 97.5 77 20 120/71 (87) 96 08/11/18 18:53 97.8 08/11/18 16:00 97.8 80 20 120/77 (91) 99 I&O Intake and Output 08/11/18 08/12/18 19:00 07:00 Intake Total 1282.5 ml 1250 ml Output Total 575 ml 1000 ml Balance 707.5 ml 250 ml Intake IV Total 1282.5 ml 1250 ml Output Urine Total 575 ml 1000 ml Cardiovascular: RSR Respiratory: clear Abdomen: soft, flat, non-tender, present bowel sounds, non-distended Extremities: no tenderness, no cyanosis, other Laboratory Tests Test 08/12/18 05:32 White Blood Count 9.4 K/UL (4.8-10.8) Red Blood Count 5.28 M/UL (4.70-6.10) Hemoglobin 14.5 G/DL (14.2-18.0) Hematocrit 43.6 % (42.0-52.0) Mean Corpuscular Volume 83 FL (80-99) Mean Corpuscular Hemoglobin 27.5 PG (27.0-31.0) Mean Corpuscular Hemoglobin Concent 33.3 G/DL (32.0-36.0) Red Cell Distribution Width 13.1 % (11.6-14.8) Platelet Count 235 K/UL (150-450) Mean Platelet Volume 8.1 FL (6.5-10.1) Neutrophils (%) (Auto) 63.9 % (45.0-75.0) Lymphocytes (%) (Auto) 26.1 % (20.0-45.0) Monocytes (%) (Auto) 7.0 % (1.0-10.0) Eosinophils (%) (Auto) 2.1 % (0.0-3.0) Basophils (%) (Auto) 1.0 % (0.0-2.0) Sodium Level 139 MMOL/L (136-145) Potassium Level 4.1 MMOL/L (3.5-5.1) Chloride Level 104 MMOL/L (98-107) Carbon Dioxide Level 27 MMOL/L (21-32) Anion Gap 9 mmol/L (5-15) Blood Urea Nitrogen 8 mg/dL (7-18) Creatinine 1.1 MG/DL (0.55-1.30) Estimat Glomerular Filtration Rate > 60 mL/min (>60) Glucose Level 98 MG/DL (74-106) Calcium Level 8.9 MG/DL (8.5-10.1) Total Bilirubin 0.6 MG/DL (0.2-1.0) Aspartate Amino Transf (AST/SGOT) 17 U/L (15-37) Alanine Aminotransferase (ALT/SGPT) 20 U/L (12-78) Alkaline Phosphatase 101 U/L (46-116) Total Protein 7.3 G/DL (6.4-8.2) Albumin 3.2 G/DL (3.4-5.0) L Globulin 4.1 g/dL Albumin/Globulin Ratio 0.8 (1.0-2.7) L Plan Problems: (1) Inguinal hernia Assessment & Plan: incarcerated right inguinal hernia. was able to reduce hernia in ED without complication given duration / leukocytosis will need admission for serial exams. if worsening will need exploration as possible compromised bowel? also seems to have diverticulitis based on CT scan and exam which complicates exam. hernia may be a red barakat as likely etiology of leukocytosis and abdominal pain is diverticulitis hernia notable and recurrent but easily reducible without incarceration or strangulation. repeat CT noted. improving clear liquids iv fluids iv abx am labs will follow with serial exams thank you Ryan Pires Aug 12, 2018 13:04
--- NOTE | 2018-08-12 13:56 | NUR ---
*-* INSURANCE *-* ALL CLINICALS HAVE BEEN FAXED TO: [employer] PROGRAM DIRECTOR ASSIGNED AT THIS TIME, PLEASE FAX THE REVIEW/CLINICAL P- [phone] F-[phone]
--- NOTE | 2018-08-12 14:28 | NUR ---
HAND-OFF: Report given to BRENDA SERRANO RN.
--- NOTE | 2018-08-12 14:30 | NUR ---
NURSE NOTES: patient is able to make things known. ambulating on the hallway without any distress. IV access got infiltrated upon received and disconnected by previous nurse and keep right arm elevated. guests @ bedside. will reinsert new IV. call light within reach. will cont to monitor.
--- NOTE | 2018-08-12 15:37 | NUR ---
NURSE NOTES: new inserted IV on RFA 22g. Verified with Dr. Pires patient stays on clear liquid diet. patient is tolerating and had another BM. NO N/V noted. will cont to monitor.
[2018-08-12 16:08] VITALS: BP 140/82
--- NOTE | 2018-08-12 19:26 | NUR ---
HAND-OFF: Report given to Ramonita.
--- NOTE | 2018-08-12 19:26 | NUR ---
NURSE NOTES: Patient received from Amina BradshawPatient A/A/OX4 . Patient denies any pain this time . no sob/ no n/v noted RFA g#22 D5NS with 20 meq at 75/ hr infusing well . call light within reach bed in low position at all times . Addendum: 08/13/18 at 0609 by ALEYDA FLORES LVN will continue to monitor patient
[2018-08-12 20:00] VITALS: BP 144/74
--- NOTE | 2018-08-12 23:45 | Progress Note ---
DATE: 08/12/2018 SUBJECTIVE: The patient is anxious to eat. His abdominal pain has decreased. No nausea, vomiting, fevers, or chills. OBJECTIVE: VITAL SIGNS: Stable. NECK: Supple. LUNGS: Clear. CARDIAC: Regular. ABDOMEN: With mild right-sided tenderness. There is no guarding. EXTREMITIES: No edema. IMPRESSION: 1. Right inguinal hernia, reduced. 2. Diverticulitis, improved. 3. Leukocytosis, resolved. PLAN: 1. Advance diet. 2. Continue IV antimicrobials. 3. Consider transition to oral antimicrobials over the next 24 to 48 hours if condition continues to improve. Michael Rosales M.D. DR: DONTA JOB#: [id number] CC:
[2018-08-13] VITALS: BP 120/87
[2018-08-13 04:00] VITALS: BP 126/82
[2018-08-13] MEDS: Piperacillin/Tazobactam 3.375 GM in D5W 110 ML IVPB SCH (06:28)
[2018-08-13 06:39] LABS: BASOPHILS % (AUTO) 0.8 % (0.0-2.0); EOSINOPHILS % (AUTO) 3.2 % (0.0-3.0); HEMATOCRIT 42.2 % (42.0-52.0); HEMOGLOBIN 14.1 G/DL (14.2-18.0); LYMPHOCYTES % (AUTO) 22.6 % (20.0-45.0); MEAN CORPUSCULAR VOLUME 83 FL (80-99); MONOCYTES % (AUTO) 9.2 % (1.0-10.0); NEUTROPHILS % (AUTO) 64.2 % (45.0-75.0); PLATELET COUNT 272 K/UL (150-450); RED BLOOD COUNT 5.11 M/UL (4.70-6.10); WHITE BLOOD COUNT 7.7 K/UL (4.8-10.8)
[2018-08-13 07:08] LABS: ANION GAP 9 mmol/L (5-15); BLOOD UREA NITROGEN 10 mg/dL (7-18); CALCIUM 9.2 MG/DL (8.5-10.1); CARBON DIOXIDE 26 MMOL/L (21-32); CHLORIDE 104 MMOL/L (98-107); CREATININE 1.1 MG/DL (0.55-1.30); POTASSIUM 3.9 MMOL/L (3.5-5.1); SODIUM 139 MMOL/L (136-145)
--- NOTE | 2018-08-13 07:40 | NUR ---
HAND-OFF: Report given to gloria Lobato patient in stable conditions
[2018-08-13 08:00] VITALS: BP 135/79
--- NOTE | 2018-08-13 11:15 | NUR ---
NURSE NOTES: TOLERATING FULL LIQUID DIET; NO N/V NOTED.SEEN BY DR. WAGNER; MAY BE DISCHARGE IF OK WITH DR. GARCIA.
--- NOTE | 2018-08-13 11:48 | Infectious Diseases Prog Note ---
Assessment/Plan Assessment/Plan A; Sigmoid diverticulitis Right inguinal hernia, reduced Leukocytosis resolved Nicotine dependence P: Agree with discharge Switch to PO Levaquin & Flagyl X 5 days Subjective ROS Limited/Unobtainable: Yes Constitutional: Reports: no symptoms, other - doing better Respiratory: Reports: no symptoms Cardiovascular: Reports: no symptoms Gastrointestinal/Abdominal: Reports: no symptoms Genitourinary: Reports: no symptoms Allergies: Coded Allergies: No Known Allergies (Unverified , 09/19/17) Objective Vital Signs Last 24 Hour Vital Signs Date Time Temp Pulse Resp B/P (MAP) Pulse Ox O2 Delivery O2 Flow Rate FiO2 08/13/18 09:00 Room Air Room Air 08/13/18 08:00 97.6 65 19 135/79 (97) 99 08/13/18 04:00 98.3 69 18 126/82 (97) 97 08/13/18 00:00 98.5 80 18 120/87 (98) 96 08/12/18 21:00 Room Air Room Air 08/12/18 20:00 98.5 85 20 144/74 (97) 97 08/12/18 16:08 97.7 74 20 140/82 (101) 99 08/12/18 12:00 98.1 78 20 120/84 (96) 99 Height (Feet): 6 Height (Inches): 0.00 Weight (Pounds): 202 General Appearance: no acute distress HEENT: mucous membranes moist Respiratory/Chest: lungs clear Cardiovascular: normal rate Abdomen: soft, non tender Extremities: no edema Neurologic/Psychiatric: alert, oriented x 3, responsive Laboratory Tests Test 08/13/18 05:20 White Blood Count 7.7 K/UL (4.8-10.8) Red Blood Count 5.11 M/UL (4.70-6.10) Hemoglobin 14.1 G/DL (14.2-18.0) L Hematocrit 42.2 % (42.0-52.0) Mean Corpuscular Volume 83 FL (80-99) Mean Corpuscular Hemoglobin 27.6 PG (27.0-31.0) Mean Corpuscular Hemoglobin Concent 33.3 G/DL (32.0-36.0) Red Cell Distribution Width 13.0 % (11.6-14.8) Platelet Count 272 K/UL (150-450) Mean Platelet Volume 9.2 FL (6.5-10.1) Neutrophils (%) (Auto) 64.2 % (45.0-75.0) Lymphocytes (%) (Auto) 22.6 % (20.0-45.0) Monocytes (%) (Auto) 9.2 % (1.0-10.0) Eosinophils (%) (Auto) 3.2 % (0.0-3.0) H Basophils (%) (Auto) 0.8 % (0.0-2.0) Sodium Level 139 MMOL/L (136-145) Potassium Level 3.9 MMOL/L (3.5-5.1) Chloride Level 104 MMOL/L (98-107) Carbon Dioxide Level 26 MMOL/L (21-32) Anion Gap 9 mmol/L (5-15) Blood Urea Nitrogen 10 mg/dL (7-18) Creatinine 1.1 MG/DL (0.55-1.30) Estimat Glomerular Filtration Rate > 60 mL/min (>60) Glucose Level 108 MG/DL (74-106) H Calcium Level 9.2 MG/DL (8.5-10.1) Current Medications Medications (Trade) Dose Ordered Sig/Lefty Route PRN Reason Start Time Stop Time Status Last Admin Dose Admin Dextrose/ Electrolytes 1,000 ml @ 75 mls/hr [id number] IV 08/12/18 13:07 09/11/18 13:06 08/12/18 15:17 Morphine Sulfate (Morphine Sulfate) 2 mg Q4H PRN IVP For Pain 08/10/18 22:45 08/17/18 22:44 08/12/18 06:07 Nicotine (Nicoderm) 1 patch Q24H TDERMAL 08/11/18 18:00 09/10/18 17:59 08/12/18 17:19 Piperacillin Sod/ Tazobactam Sod 3.375 gm/Dextrose 110 ml @ 27.5 mls/hr EVERY 8 HOURS IVPB 08/10/18 22:45 08/15/18 22:44 08/13/18 06:28 Fabio Horn MD Aug 13, 2018 11:48
--- NOTE | 2018-08-13 11:52 | NUR ---
Social Service Note SW met with patient to assist with contacting his PO regarding hospitalization. Per patient, he has spoken with PO and no hospital documentation is required at this time. Will contact SW at a later time if needed.
[2018-08-13 12:00] VITALS: BP 134/90
--- NOTE | 2018-08-13 12:00 | NUR ---
NURSE NOTES: PATIENT TOLERATED REGULAR DIET. NO N/V NOTED. SEEN BY ID AND DR. GARCIA. OK TO ID HOME. RX PROVIDED. PATIENT AWARE.
[2018-08-13] MEDS ORDERED: FLAGYL500 MG ORAL (12:30)
[2018-08-13] MEDS ORDERED: LEVAQUIN500 MG ORAL (12:30)
--- NOTE | 2018-08-13 12:32 | Surgery Progress Note ---
Surgery Progress Note Subjective Additional Comments no acute events. stable. comfortable. pain resolved. labs okay. tolerating diet. had BM Objective Last 24 Hour Vital Signs Date Time Temp Pulse Resp B/P (MAP) Pulse Ox O2 Delivery O2 Flow Rate FiO2 08/13/18 12:00 97.6 75 18 134/90 (105) 99 08/13/18 09:00 Room Air Room Air 08/13/18 08:00 97.6 65 19 135/79 (97) 99 08/13/18 04:00 98.3 69 18 126/82 (97) 97 08/13/18 00:00 98.5 80 18 120/87 (98) 96 08/12/18 21:00 Room Air Room Air 08/12/18 20:00 98.5 85 20 144/74 (97) 97 08/12/18 16:08 97.7 74 20 140/82 (101) 99 I&O Intake and Output 08/12/18 08/13/18 19:00 07:00 Intake Total 832.5 ml 1417.5 ml Output Total 1350 ml Balance 832.5 ml 67.5 ml Intake Oral 980 ml IV Total 832.5 ml 437.5 ml Output Urine Total 1350 ml # Voids 1 4 # Bowel Movements 1 Drains: none Cardiovascular: RSR Respiratory: clear Abdomen: soft, flat, non-tender, non-distended Extremities: no cyanosis Laboratory Tests Test 08/13/18 05:20 White Blood Count 7.7 K/UL (4.8-10.8) Red Blood Count 5.11 M/UL (4.70-6.10) Hemoglobin 14.1 G/DL (14.2-18.0) L Hematocrit 42.2 % (42.0-52.0) Mean Corpuscular Volume 83 FL (80-99) Mean Corpuscular Hemoglobin 27.6 PG (27.0-31.0) Mean Corpuscular Hemoglobin Concent 33.3 G/DL (32.0-36.0) Red Cell Distribution Width 13.0 % (11.6-14.8) Platelet Count 272 K/UL (150-450) Mean Platelet Volume 9.2 FL (6.5-10.1) Neutrophils (%) (Auto) 64.2 % (45.0-75.0) Lymphocytes (%) (Auto) 22.6 % (20.0-45.0) Monocytes (%) (Auto) 9.2 % (1.0-10.0) Eosinophils (%) (Auto) 3.2 % (0.0-3.0) H Basophils (%) (Auto) 0.8 % (0.0-2.0) Sodium Level 139 MMOL/L (136-145) Potassium Level 3.9 MMOL/L (3.5-5.1) Chloride Level 104 MMOL/L (98-107) Carbon Dioxide Level 26 MMOL/L (21-32) Anion Gap 9 mmol/L (5-15) Blood Urea Nitrogen 10 mg/dL (7-18) Creatinine 1.1 MG/DL (0.55-1.30) Estimat Glomerular Filtration Rate > 60 mL/min (>60) Glucose Level 108 MG/DL (74-106) H Calcium Level 9.2 MG/DL (8.5-10.1) Plan Problems: (1) Inguinal hernia Assessment & Plan: incarcerated right inguinal hernia. was able to reduce hernia in ED without complication given duration / leukocytosis will need admission for serial exams. if worsening will need exploration as possible compromised bowel? also seems to have diverticulitis based on CT scan and exam which complicates exam. hernia may be a red barakat as likely etiology of leukocytosis and abdominal pain is diverticulitis hernia notable and recurrent but easily reducible without incarceration or strangulation. repeat CT noted. improving pain resolved diet as tolerated iv fluids iv abx --> transition to oral for d/c d/c planning thank you Ryan Pires Aug 13, 2018 12:32
--- NOTE | 2018-08-13 12:35 | NUR ---
NURSE NOTES: PATIENT DISCHARGED PER MD ORDER. RX GIVEN WITH PATIENT EDUCATION.VERBALIZED UNDERSTANDING. WILL F/U PCP DISCUSSED WITH MEDICAL TEAM.
--- NOTE | 2018-08-14 00:45 | Progress Note ---
INTERNAL MEDICINE PROGRESS NOTE DATE: 08/13/2018 SUBJECTIVE: The patient has no abdominal pain today. He is tolerating a diet. No nausea or vomiting. PHYSICAL EXAMINATION: VITAL SIGNS: Afebrile. Blood pressure 135/79, pulse 65, and respirations 19. LUNGS: Clear. CARDIAC: Regular. ABDOMEN: Minimal tender in the right lower quadrant. No guarding or rebound. EXTREMITIES: No edema. IMPRESSION: 1. Inguinal hernia, reduced. 2. Acute diverticulitis, improved. 3. Leukocytosis, resolved. PLAN: 1. Transition from IV to oral antimicrobials. 2. High fiber diet. 3. Complete recovery as an outpatient. 4. Hernia repair at a later date. Michael Rosales M.D. DR: MISTY JOB#: [id number] CC:
--- NOTE | 2018-08-14 13:31 | Discharge Summary ---
Discharge Summary Discharge Summary _ DATE OF ADMISSION: 08/10/2018 DATE OF DISCHARGE: 08/13/2018 DISCHARGED BY: Dr. Michael Rosales CONSULTANTS: Dr. Ryan Garcia BRIEF HOSPITAL COURSE: Patient is a 43-year-old male, with a known history of right inguinal hernia, presented to emergency room complaining of right-sided groin pain that was relatively acute in onset. He also noted abdominal discomfort. He was able to pass gas. On evaluation at ED, blood work showed leukocytosis, WBC 16. Hemoglobin and hematocrit were stable. Electrolytes were normal. Kidney function was normal. Urinalysis was essentially remarkable. LFTs and lipase were normal. CT of the abdomen and pelvis showed findings consistent with acute sigmoid diverticulitis. There was questionable evidence of focal microperforation. Large fat-containing indirect inguinal hernia. Thickening of contained peritoneum, infiltration of the herniated fat and a small amount of fluid within the hernia concerning for strangulation. There was concern for sigmoid diverticulitis and possible microperforation. Patient was then admitted for evaluation of inguinal hernia. Surgical consultation was obtained. Patient had incarcerated right inguinal hernia. Able to be reduced in the ED without complication. Given duration and presence of leukocytosis, patient will need admission for serial exams, and if worsened may eventually need exploration for possible compromised bowel. He was placed on n.p.o. He was given IV fluids. He was given Zosyn and Flagyl. ID was consulted. Flagyl was discontinued. He was given nicotine patch. A repeat CT of the abdomen and pelvis was done. There was again evidence of sigmoid diverticulitis. Unchanged appearance of fat-containing right inguinal hernia, no evidence of free air. Leukocytosis resolved. Hernia was notable and recurrent but was easily reducible without incarceration or strangulation. Symptoms were improving. He was eventually started on clear liquid diets. Diet was advanced. He was tolerating diet. He had a BM. Antibiotics were transitioned to po. He was eventually discharged home. FINAL DIAGNOSES: Right inguinal hernia, reduced Acute diverticulitis, improved Leukocytosis, resolved Nicotine dependence. DISPOSITION: DISCHARGE MEDICATIONS: Refer to Discharge Medication List. Continue Levaquin and Flagyl for 5 more days. DISCHARGE INSTRUCTIONS: Follow-up in a week. I have been assigned to complete a discharge summary on this account, I was not involved with the patient's management. Sandy Loco NP Aug 14, 2018 13:30
== END 2018-08-13 12:57 | disposition home or self-care (01) | DRG 254 ==
LOC: EMR 12:03 → 3E 16:30 → EDBEDREQ 20:25
DX: K40.30 Unilateral inguinal hernia, with obstruction, without gangrene, not specified as recurrent (principal); K57.20 Diverticulitis of large intestine with perforation and abscess without bleeding; F15.21 Other stimulant dependence, in remission; H66.90 Otitis media, unspecified, unspecified ear
CPT/HCPCS: 36415; 74177; 80048; 80053; 81003; 83605; 83690; 85025; 85610; 85651; 85730; 86140; 96361; 96365; 96375; 99285